=== PATIENT | male | born 1990 ===

== ENCOUNTER 2017-09-11 22:08 | Emergency (ER) | payer OTHER ==
[2017-09-11 22:38] VITALS: BP 120/80
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
[2017-09-12] MEDS ORDERED: NORCO 5/325 PO ONE (03:01)
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
[2017-09-12] MEDS ORDERED: BOOSTRIX IM ONE (03:02)
[2017-09-12] MEDS ORDERED: TRIPLE ANTIBIOTIC TP ONE (03:02)
== END 2017-09-12 03:20 | disposition home or self-care (01) ==
LOC: ED 22:08
DX: S50.812A Abrasion of left forearm, initial encounter (principal); M25.551 Pain in right hip; M79.1 Myalgia; F17.200 Nicotine dependence, unspecified, uncomplicated; V89.2XXA Person injured in unspecified motor-vehicle accident, traffic, initial encounter; Y93.89 Activity, other specified; Y92.89 Other specified places as the place of occurrence of the external cause; Y99.8 Other external cause status
CPT/HCPCS: 90471; 90715; A6250